=== PATIENT | male | born 1960 | race Caucasian/White ===

== ENCOUNTER → 2018-02-10 | Outpatient (CLI) | payer MEDICARE ==
[~2018-02-10] MED LIST: ATENOLOL50 MG PO; mylanta PO
--- NOTE | 2018-02-10 13:12 | Diagnostic Imaging Report ---
MRI of the left shoulder without contrast. History: Shoulder pain. Trauma. Decreased range of motion. Comparison: None Technique: Coronal PD FS, sagital PD FS, and axial PD and PD FS. Findings: Rotator cuff: There is rotator cuff tendinosis with midsubstance degeneration and mild articular sided partial tearing involving the anterior fibers of the supraspinatus and infraspinatus tendons at the humeral insertion site. Additionally, there is subscapularis tendinosis. There is nonspecific teres minor muscle atrophy. Osseous acromion complex: There is a type II acromion with mild lateral downsloping. There is mild degenerative arthrosis of the acromioclavicular joint with undersurface spurring and narrowing of the supraspinatus tendon outlet. Glenohumeral joint: There is degeneration and fraying of the labrum with tearing of the posterior labrum. There is an adjacent 3 mm posterior para labral cyst best seen on series 2 image 13 and 14. The articular cartilage surfaces are slightly thin. The humeral head is well-seated in the glenoid fossa. There is an effusion/synovitis in the rotator interval and subcoracoid space. Biceps tendon: There is intra-articular biceps tendinosis with fraying at the biceps anchor. Other findings: Negative for muscle denervation or osseous fracture. Impression: Rotator cuff tendinosis with midsubstance degeneration and mild articular sided partial tearing involving the anterior fibers of the supraspinatus and infraspinatus tendons at the humeral insertion site. Intra-articular biceps tendinosis with fraying at the biceps anchor. Degeneration and fraying of the labrum with tearing of the posterior labrum Signed by: Dr. Antwan Watts M.D. on 02/10/2018 1:09 PM
== END ==
LOC: MRI 11:18
PROVIDERS: ATTEND Specialist
DX: S46.092A Other injury of muscle(s) and tendon(s) of the rotator cuff of left shoulder, initial encounter (principal)

== ENCOUNTER 2018-02-23 16:00 | Outpatient (RCR) | payer MEDICARE | END 2018-03-08 | LOC: PT 16:00 | PROVIDERS: ATTEND Specialist | DX: M75.92 Shoulder lesion, unspecified, left shoulder (principal); M77.8 Other enthesopathies, not elsewhere classified | CPT/HCPCS: 97110; 97161; G8984; G8985 ==

== ENCOUNTER → 2018-05-12 | Outpatient (CLI) | payer MEDICARE ==
[~2018-05-12] MED LIST changes: +GADOBENATE DIMEGLUMINE 1 ML IV ONE; +IOPAMIDOL 300 MG/ML 15ML VIAL IT ONE; +LIDOCAINE HCL 1% LOCAL INJ 20 ML VIAL ONE
--- NOTE | 2018-05-12 11:27 | Diagnostic Imaging Report ---
MRI of the left shoulder with contrast. History: Shoulder pain. Tendinitis. Fall. Decreased range of motion. Comparison: 02/10/2018 Technique: Multiplanar multisequence MRI of the shoulder after the administration of intra-articular gadolinium contrast material Findings: Rotator cuff: There is rotator cuff tendinosis with a small near full-thickness tear involving the anterior fibers of the supraspinatus and infraspinatus tendons at the humeral insertion site. This is best seen on coronal image 15 and 16. A few of the bursal sided fibers appear to be intact. There is minimal retraction of the torn fibers. There is nonspecific teres minor muscle atrophy. There is subscapularis tendinosis. Osseous acromion complex: There is a type II acromion with mild lateral downsloping. There is moderate degenerative arthrosis at the acromioclavicular joint with undersurface spurring and narrowing of the supraspinatus tendon outlet. Glenohumeral joint: There is degeneration and fraying of the labrum with tearing of the posterior labrum. There is an adjacent 3 mm posterior para labral cyst best seen on series 2 image 13 and 14. The articular cartilage surfaces are slightly thin. The humeral head is well-seated in the glenoid fossa. There is an effusion/synovitis in the rotator interval and subcoracoid space. Biceps tendon: There is intra-articular biceps tendinosis with fraying at the biceps anchor. Other findings: Negative for muscle denervation or osseous fracture. Impression: Rotator cuff tendinosis with midsubstance degeneration and near full-thickness tear involving the anterior fibers of the supraspinatus and infraspinatus tendons at the humeral insertion site. A few of the bursal sided fibers appear to be intact. Intra-articular biceps tendinosis with fraying at the biceps anchor. Degeneration and fraying of the labrum with tearing of the posterior labrum Signed by: Dr. Antwan Watts M.D. on 05/12/2018 11:23 AM
--- NOTE | 2018-05-12 14:12 | Diagnostic Imaging Report ---
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 The patient was placed in the supine position on the fluoroscopic table with the left shoulder externally rotated. The skin overlying the superomedial humeral head was marked and 1% lidocaine was administered for local anesthesia. Then under intermittent fluoroscopic guidance, a 22-gauge needle was advanced to the superomedial surface of the humeral head. Subsequently, a mixture of dilute Gadovist contrast with saline and Isovue 300 was slowly injected into the joint (dosing above) with intermittent fluoroscopy. The needle was removed. Images were obtained in internal and external rotation in neutral and abduction positions. The patient tolerated the procedure well without immediate complication. FINDINGS: Intra-articular injection of contrast is present. IMPRESSION: Left shoulder arthrogram with fluoroscopic guidance as above. Plan for subsequent MRI. Signed by: Dr. Danyell Kilpatrick MD on 05/12/2018 2:09 PM
== END ==
LOC: DX 07:35
PROVIDERS: ATTEND Orthopaedic Surgery
DX: M75.92 Shoulder lesion, unspecified, left shoulder (principal)
CPT/HCPCS: 23350; 73222; 77002; J2001; Q9967

== ENCOUNTER 2021-04-02 12:28 | Emergency (ER) | payer MEDICARE ==
[~2021-04-02] VITALS: Ht 175.3 cm; Wt 84.8 kg
[~2021-04-02 12:28] MED LIST changes: -GADOBENATE DIMEGLUMINE 1 ML IV ONE; -IOPAMIDOL 300 MG/ML 15ML VIAL IT ONE; -LIDOCAINE HCL 1% LOCAL INJ 20 ML VIAL ONE
[2021-04-02] MEDS ORDERED: CASIRIVIMAB/IMDEVIMAB 10 ML in SODIUM CHLORIDE 0.9% 100 ML IV ONE (14:15)
== END 2021-04-02 16:28 | disposition home or self-care (01) ==
LOC: ER 14:53
DX: U07.1 COVID-19 (principal); R05.9 Cough, unspecified; I10 Essential (primary) hypertension; R51.9 Headache, unspecified
CPT/HCPCS: 99283; J7050

== ENCOUNTER 2021-11-16 14:39 | Emergency (ER) | payer MEDICARE ==
[~2021-11-16] VITALS: Ht 175.3 cm; Wt 84.8 kg
[2021-11-16] MEDS ORDERED: BEBTELOVIMAB 175 MG INJ IV ONE (15:00)
== END 2021-11-16 15:21 | disposition home or self-care (01) ==
LOC: ER 15:00
DX: U07.1 COVID-19 (principal); I10 Essential (primary) hypertension; F17.210 Nicotine dependence, cigarettes, uncomplicated
CPT/HCPCS: 99282

== ENCOUNTER 2021-12-27 10:53 | Emergency (ER) | payer MEDICARE, OTHER ==
[~2021-12-27] VITALS: Ht 175.3 cm; Wt 84.8 kg
[2021-12-27] MEDS ORDERED: LIDOCAINE 1% W/EPINEPHRINE 20 ML VIAL INJ ONE (12:00)
== END 2021-12-27 12:13 | disposition home or self-care (01) ==
LOC: ER 11:00
DX: S91.311A Laceration without foreign body, right foot, initial encounter (principal); W27.0XXA Contact with workbench tool, initial encounter; Y92.89 Other specified places as the place of occurrence of the external cause
CPT/HCPCS: 99284